=== PATIENT | male | born 1985 | race Caucasian/White ===

== ENCOUNTER 2018-02-23 18:28 | Emergency (ER) | payer SELFPAY | END 2018-02-23 20:56 | disposition home or self-care (01) | LOC: FTE 18:28 | DX: L03.012 Cellulitis of left finger (principal); J33.9 Nasal polyp, unspecified | CPT/HCPCS: 99283 ==

== ENCOUNTER 2018-04-22 22:39 | Emergency (ER) | payer SELFPAY | END 2018-04-23 01:35 | disposition home or self-care (01) | LOC: FTE 22:39 | DX: J01.90 Acute sinusitis, unspecified (principal); B35.4 Tinea corporis | CPT/HCPCS: 99283 ==